=== PATIENT | female | born 1980 | race Caucasian/White ===

== ENCOUNTER → 2019-12-08 12:11 | Outpatient (CLI) | payer BC, SELFPAY ==
--- NOTE | ~2019-12-08 | US_ITS ---
EXAMINATION: US thyroid DATE: 12/08/2019 12:41 INDICATION: Nontoxic single thyroid nodule. Weight gain and difficulty swallowing. TECHNIQUE: Multiple ultrasound images of the thyroid were obtained. COMPARISON: 10/11/2013 FINDINGS: The right thyroid lobe measures 5.5 x 2.1 x 1.8 cm. The left thyroid lobe measures 5.3 x 1.2 x 1.7 c m. No significant interval change in a 7 mm cystic nodule with posterior acoustic enhancement in the mid right thyroid lobe. 7 mm wider than tall isoechoic solid nodule with well-defined margins at the superior right thyroid lobe (TI-RADS 3, mildly suspicious , FNA if >=2.5 cm, annual followup is >1.5 cm). There is normal echotexture, echogenicity and vascular flow throughout the thyroid gland. IMPRESSION: 1. A couple likely benign subcentimeter nodules in the right thyroid lobe, neither meeting consensus criteria for biopsy or follow-up. Recommend clinical followup with repeat imaging if there are change s on physical exam. Reviewed, dictated and finalized at location A. IMPRESSION: 1. A couple likely benign subcentimeter nodules in the right thyroid lobe, neit her meeting consensus criteria for biopsy or follow-up. Recommend clinical foll owup with repeat imaging if there are changes on physical exam.
== END ==
PROVIDERS: Visit Provider Physician Assistant
DX: E04.1 Nontoxic single thyroid nodule (principal)
CPT/HCPCS: 76536

== ENCOUNTER 2020-01-02 13:21 | Outpatient (CLI) | payer BC, SELFPAY ==
--- NOTE | ~2020-01-02 | CT_ITS ---
EXAMINATION: CT soft tissue neck w con DATE: 01/02/2020 14:31 INDICATION: Swelling, mass, and lump of neck. TECHNIQUE: Computed tomography (CT) of the neck was performed with 75 mL Omnipaque-350 intravenous co ntrast. Automated exposure control and iterative reconstruction technique were employed. The dose-ana gth product was 414.70 mGy-cm. COMPARISON: Thyroid ultrasound 12/08/2019 FINDINGS: There are nodules in the thyroid measuring up to 7 mm, likely not clinically significant. T here are no pathologically enlarged lymph nodes. The internal carotid arteries and vertebral arteries are normal. The pharyngeal mucosal space and larynx are normal. There is mild cervical spondylosis. IMPRESSION: 1. No specific etiology for the patient's symptoms. Reviewed, dictated and finalized at location A.
== END 2020-01-02 13:22 ==
PROVIDERS: PCP Physician Assistant; Visit Provider Physician Assistant
DX: R22.1 Localized swelling, mass and lump, neck (principal)
CPT/HCPCS: 70491; Q9967